=== PATIENT | female | born 1990 | race Caucasian/White ===

== ENCOUNTER 2017-10-27 17:20 | Observation (INO) | payer OTHER ==
[~2017-10-27] VITALS: Ht 160 cm; Wt 100.7 kg
== END 2017-10-27 20:00 | disposition home or self-care (01) ==
LOC: EDBD → SPU 17:20
PROVIDERS: ADMIT Obstetrics & Gynecology; ATTEND Obstetrics & Gynecology
DX: O36.8220 Fetal anemia and thrombocytopenia, second trimester, not applicable or unspecified (principal); Z3A.22 22 weeks gestation of pregnancy
CPT/HCPCS: 81002; G0378

== ENCOUNTER 2018-03-02 13:15 | Inpatient (IN) | payer OTHER ==
[~2018-03-02] VITALS: Ht 160 cm; Wt 115.7 kg
[2018-03-02 18:58] VITALS: BP_SYST 141
[2018-03-02] MEDS ORDERED: DINOPROSTONE 10 MG SUPP VG ONE (19:00)
[2018-03-02 19:25] LABS: BASOPHILS % (AUTO) 0.3 % (0.0-2.0); EOSINOPHILS # (AUTO) 0.1 K/uL (0.0-0.4); HEMATOCRIT 27.3 % (36-48); HEMOGLOBIN 9.3 g/dL (12.0-16.0); LYMPHOCYTES % (AUTO) 19.6 % (20.5-51.5); MEAN CORPUSCULAR HEMOGLOBIN 27 pg (27-31); MEAN CORPUSCULAR HGB CONC 34 % (32-36); MEAN CORPUSCULAR VOLUME 78 fL (79.0-98.0); MONOCYTES # (AUTO) 0.7 K/uL (0.0-1.0); MONOCYTES % (AUTO) 6.5 % (1.7-9.3); NEUTROPHILS # (AUTO) 7.2 K/uL (1.8-7.7); NEUTROPHILS % (AUTO) 72.6 % (40.0-70.0); PLATELET COUNT (AUTO) 184 K/uL (130-430); RED CELL DISTRIBUTION WIDTH 15.6 % (9.0-15.0)
[2018-03-02] MEDS: LR 1,000 ML IV SCH (19:59)
[2018-03-03] MEDS: OXYTOCIN/0.9 % SODIUM CHLORIDE 1,000 ML IV SCH (04:12)
[2018-03-03] MEDS: NALBUPHINE HCL 10 MG/ML AMP IVP PRN ×2 (04:13→14:50)
[2018-03-03] MEDS: LR 1,000 ML IV SCH (04:17)
[2018-03-03] MEDS ORDERED: LIDOCAINE PF 2%, 200 MG/10 ML AMPUL.LUER (EPIDURAL) INJ ONE (10:35)
[2018-03-03] MEDS ORDERED: NS IRRIG SOLN 1000 ML IR ONE (10:35)
[2018-03-03] MEDS ORDERED: LR 1,000 ML IV.SOLN IV ONE (10:35)
[2018-03-03] MEDS ORDERED: LIDOCAINE MPF 2% 5mL VIAL INJ ONE (10:35)
[2018-03-03] MEDS ORDERED: fentaNYL CITRATE/PF 100 MCG/2 ML AMP IVP ONE (10:35)
[2018-03-03] MEDS ORDERED: MORPHINE SULFATE 10MG/10ML PF AMP EP ONE (10:35)
[2018-03-03] MEDS ORDERED: fentaNYL CITRATE/PF 100 MCG/2 ML AMP ONE (15:58)
[2018-03-03] MEDS ORDERED: ROPIVACAINE 0.2% 100 ML ONE (15:58)
[2018-03-03] MEDS ORDERED: FENT2mCg/mL-ROPIVA0.2%/NS EPID 150 ML EP SCH (15:58)
[2018-03-03 18:23] LABS: BILIRUBIN,URINE NEGATIVE (NEGATIVE); CLARITY/URINE CLEAR (CLEAR); COLOR,URINE YELLOW (YELLOW); GLUCOSE,URINE NEGATIVE (NEGATIVE); KETONES,URINE 1+ (NEGATIVE); LEUKOCYTE ESTERASE ,URINE NEGATIVE (NEGATIVE); NITRITE, URINE NEGATIVE (NEGATIVE); PROTEIN URINE 2+ (NEGATIVE); UROBILINOGEN,URINE 0.2 (0.2-1.0)
[2018-03-03 18:35] LABS: BLOOD, URINE TRACE (NEGATIVE)
[2018-03-03 19:05] LABS: BACTERIA,URINE FEW /HPF (None Seen); RBC,URINE 0-3 /HPF (0-3); WBC,URINE 0-3 /HPF (0-3)
[2018-03-03 19:06] LABS: MUCUS,URINE None Seen /LPF (None Seen)
[2018-03-04] MEDS ORDERED: ROPIVACAINE 0.2% 100 ML ONE (00:19)
[2018-03-04] MEDS: LR 1,000 ML IV SCH (00:20)
[2018-03-04] MEDS: NALBUPHINE HCL 10 MG/ML AMP IVP PRN (01:12)
[2018-03-04] MEDS: OXYTOCIN/0.9 % SODIUM CHLORIDE 1,000 ML IV SCH (01:50)
[2018-03-04] MEDS ORDERED: fentaNYL CITRATE/PF 100 MCG/2 ML AMP ONE (02:51)
[2018-03-04] MEDS ORDERED: OXYTOCIN/0.9 % SODIUM CHLORIDE 1,000 ML IV ONE ×2 (09:06→20:53)
[2018-03-04] MEDS ORDERED: MORPHINE SULFATE 10 MG/ML VIAL IVP PRN (09:15)
[2018-03-04] MEDS ORDERED: ANUSOL 1 EA SUPP.RECT (PREPARATION H) RC PRN (09:15)
[2018-03-04] MEDS ORDERED: SIMETHICONE 80 MG TAB.CHEW PO PRN (09:15)
[2018-03-04] MEDS ORDERED: SENNOSIDES/DOCUSATE SODIUM 1 TAB TABLET(SENOKOT-S) PO PRN (09:15)
[2018-03-04] MEDS ORDERED: RHO(D) IMMUNE GLOBULIN/MALTOSE 1500 UNITS/1.3 ML (WINHRO) IM PRN (09:15)
[2018-03-04] MEDS ORDERED: DIPH-TET-PERTUS Vaccine 0.5 ML VIAL (ADACEL) I.M. PRN (09:15)
[2018-03-04] MEDS ORDERED: MEASLES,MUMPS&RUBELLA VACC/PF 12500 UNIT/0.5 ML VIAL SUBQ PRN (09:15)
[2018-03-04] MEDS ORDERED: BISACODYL 10 MG/SUPPOSITORY RC PRN (09:15)
[2018-03-04] MEDS ORDERED: LANOLIN 7 GM OINT. TP PRN (09:15)
[2018-03-04] MEDS ORDERED: CEFAZOLIN 2 GM IVPB PREMIX 50 ML IV ONE (09:26)
[2018-03-04] MEDS ORDERED: NALBUPHINE HCL 10 MG/ML AMP IVP PRN (10:15)
[2018-03-04] MEDS ORDERED: MORPHINE SULFATE 10MG/10ML PF AMP EP SCH (10:15)
[2018-03-04] MEDS ORDERED: KETOROLAC TROMETHAMINE 30 MG VIAL IVP PRN (10:15)
[2018-03-04] MEDS ORDERED: KETOROLAC TROMETHAMINE 60 MG/2 ML VIAL IM PRN (10:15)
[2018-03-04] MEDS ORDERED: ONDANSETRON HCL 4 MG/2 ML VIAL IVP PRN ×2 (10:15)
[2018-03-04] MEDS ORDERED: DIPHENHYDRAMINE INJ 50 MG/ML VIAL IVP PRN (10:15)
[2018-03-04] MEDS ORDERED: NALOXONE HCL 0.4 MG/ML AMP (NARCAN) IVP PRN ×2 (10:15)
[2018-03-04] MEDS ORDERED: fentaNYL CITRATE/PF 100 MCG/2 ML AMP IVP PRN ×2 (10:15)
[2018-03-04 10:30] VITALS: BP_SYST 128
--- NOTE | 2018-03-04 14:30 | NUR ---
Dietitian Recommendations * Recommend continuing clear liquid diet per MD * Consider advance to regular diet if/when medically appropriate (lactose restriction) LP, RD Please refer to Nutrition Assessment for details.
[2018-03-04] MEDS ORDERED: TEMAZEPAM 15 MG CAPSULE PO PRN (21:00)
[2018-03-05] MEDS: DOCUSATE SODIUM 100 MG CAPSULE PO PRN ×3 (06:00→21:51)
[2018-03-05] MEDS: IBUPROFEN 800 MG TABLET PO PRN ×3 (06:00→17:35)
[2018-03-05 06:17] LABS: HEMOGLOBIN 7.2 g/dL (12.0-16.0); MEAN CORPUSCULAR HEMOGLOBIN 26 pg (27-31); MEAN CORPUSCULAR HGB CONC 34 % (32-36); MEAN CORPUSCULAR VOLUME 78 fL (79.0-98.0); PLATELET COUNT (AUTO) 168 K/uL (130-430); RED BLOOD CELL COUNT(AUTO) 2.74 MIL/uL (4.2-6.2); RED CELL DISTRIBUTION WIDTH 15.8 % (9.0-15.0)
[2018-03-05 07:00] LABS: HEMATOCRIT 21.5 % (36-48)
[2018-03-05] MEDS ORDERED: MINERAL OIL 30 ML UDC PO ONE (07:29)
[2018-03-05] MEDS ORDERED: LIDOCAINE PF 1% 30ML(POUR BTL) INJ ONE (07:29)
[2018-03-05 09:47] LABS: BAND % (MANUAL) 10 % (0-6); BASOPHILS % (MANUAL) 0 % (0-2); EOSINOPHILS % (MANUAL) 1 % (0-7); LYMPHOCYTES % (MANUAL) 9 % (20-46); MONOCYTES % (MANUAL) 4 % (0-11)
[2018-03-05] MEDS: FERROUS SULFATE 325 MG TABLET.DR PO SCH ×3 (09:51→21:51)
[2018-03-05] MEDS: OXYCODONE/ACETAMINOPHEN 5-325 TABLET PO PRN ×2 (16:10→21:50)
[2018-03-06] MEDS: IBUPROFEN 800 MG TABLET PO PRN ×3 (00:18→08:07)
[2018-03-06] MEDS: OXYCODONE/ACETAMINOPHEN 5-325 TABLET PO PRN (03:38)
[2018-03-06] MEDS: FERROUS SULFATE 325 MG TABLET.DR PO SCH (09:20)
== END 2018-03-06 13:10 | disposition home or self-care (01) | DRG 765 ==
LOC: SPU 18:15
PROVIDERS: ADMIT Specialist; ATTEND Specialist
PROC: 3E0P7VZ Introduction of Hormone into Female Reproductive, Via Natural or Artificial Opening (ICD-10-PCS; 2018-03-04)
PROC: 3E033VJ Introduction of Other Hormone into Peripheral Vein, Percutaneous Approach (ICD-10-PCS; 2018-03-04)
PROC: 10D00Z1 Extraction of Products of Conception, Low, Open Approach (ICD-10-PCS; principal; 2018-03-04 09:00)
DX: O33.9 Maternal care for disproportion, unspecified (principal); Z68.42 Body mass index [BMI] 45.0-49.9, adult; O48.0 Post-term pregnancy; O99.02 Anemia complicating childbirth; D64.9 Anemia, unspecified; O62.1 Secondary uterine inertia; O99.214 Obesity complicating childbirth; E66.01 Morbid (severe) obesity due to excess calories; O64.0XX0 Obstructed labor due to incomplete rotation of fetal head, not applicable or unspecified; O69.2XX0 Labor and delivery complicated by other cord entanglement, with compression, not applicable or unspecified; Z37.0 Single live birth; Z3A.41 41 weeks gestation of pregnancy
CPT/HCPCS: 36415; 81000-TC; 85007; 85025; 85027; 86886; 86900; 86901; 94760; J0690; J1885; J2001; J2274; J2300; J2590; J2795; J3010; J7120

== ENCOUNTER 2019-11-30 23:57 | Emergency (ER) | payer OTHER ==
[~2019-11-30] VITALS: Ht 160 cm; Wt 94.3 kg
[2019-12-01] MEDS ORDERED: NACL 0.9% 1,000 ML IV ONE (00:01)
[2019-12-01 00:12] VITALS: BP_SYST 117
--- NOTE | 2019-12-01 00:16 | NUR ---
Patient triaged and placed in waiting room. VSS and patient appears in no acute distress at this time. Accompanied by , awaiting available bed, and MD notified of need for MSE.
[2019-12-01 00:55] LABS: BASOPHILS % (AUTO) 0.3 % (0.0-2.0); EOSINOPHILS # (AUTO) 0.2 K/uL (0.0-0.4); EOSINOPHILS % (AUTO) 1.7 % (0.0-4.0); HEMATOCRIT 36.1 % (36-48); HEMOGLOBIN 12.1 g/dL (12.0-16.0); LYMPHOCYTES # (AUTO) 3.4 K/uL (1.0-5.5); LYMPHOCYTES % (AUTO) 25.1 % (20.5-51.5); MEAN CORPUSCULAR HEMOGLOBIN 29 pg (27-31); MEAN CORPUSCULAR HGB CONC 34 % (32-36); MEAN CORPUSCULAR VOLUME 88 fL (79.0-98.0); MONOCYTES # (AUTO) 0.8 K/uL (0.0-1.0); MONOCYTES % (AUTO) 6.2 % (1.7-9.3); NEUTROPHILS # (AUTO) 9.1 K/uL (1.8-7.7); NEUTROPHILS % (AUTO) 66.7 % (40.0-70.0); PLATELET COUNT (AUTO) 241 K/uL (130-430); RED BLOOD CELL COUNT(AUTO) 4.13 MIL/uL (4.2-6.2); RED CELL DISTRIBUTION WIDTH 13.9 % (9.0-15.0); WHITE BLOOD COUNT (AUTO) 13.7 K/uL (4.8-10.8)
[2019-12-01 01:14] LABS: CALCIUM 8.5 mg/dL (8.4-11.0); CREATININE 0.54 mg/dL (0.55-1.30); POTASSIUM 3.8 mmol/L (3.5-5.1)
[2019-12-01 01:21] LABS: BILIRUBIN,URINE NEGATIVE (NEGATIVE); BLOOD, URINE NEGATIVE (NEGATIVE); CLARITY/URINE CLEAR (CLEAR); COLOR,URINE YELLOW (YELLOW); GLUCOSE,URINE NEGATIVE (NEGATIVE); KETONES,URINE NEGATIVE (NEGATIVE); LEUKOCYTE ESTERASE ,URINE 2+ (NEGATIVE); NITRITE, URINE NEGATIVE (NEGATIVE); PROTEIN URINE NEGATIVE (NEGATIVE); UROBILINOGEN,URINE 0.2 (0.2-1.0)
--- NOTE | 2019-12-01 01:32 | NUR ---
Patient to ER bed 06 to gown for evaluation. Side rails up. Report given to DWAYNE Khan.
[2019-12-01 01:33] LABS: BACTERIA,URINE MODERATE /HPF (None Seen); RBC,URINE 0-3 /HPF (0-3)
[2019-12-01 01:42] LABS: ALBUMIN 2.7 g/dL (3.4-4.8); TOTAL BILIRUBIN 0.2 mg/dL (0.0-1.0)
--- NOTE | 2019-12-01 01:42 | NUR ---
Pt 19 weeks , AAOx4 ambulated into ED c/o possible vagina bleeding s/p noticing bright pink blood in toilet last night. Also c/o 4/10 L flank pain. Denies dysuria. No other injuries/complaints per pt/noted. Will continue to monitor.
--- NOTE | 2019-12-01 01:45 | NUR ---
ER Dr. Decker at bedside examining patient.
--- NOTE | 2019-12-01 02:05 | NUR ---
Patient given written and verbal discharge instructions and verbalizes understanding. ER MD Decker discussed with patient the results and treatment provided. Patient in stable condition. ID arm band removed. Rx of Macrobid given. Patient educated on pain management and to follow up with PMD. Pain Scale 0. Opportunity for questions provided and answered. Medication side effect fact sheet provided.
[2019-12-01 02:10] VITALS: BP_SYST 112
== END 2019-12-01 02:05 | disposition home or self-care (01) ==
LOC: SED 23:57
DX: O20.9 Hemorrhage in early pregnancy, unspecified (principal); O23.42 Unspecified infection of urinary tract in pregnancy, second trimester; Z3A.19 19 weeks gestation of pregnancy; Z88.8 Allergy status to other drugs, medicaments and biological substances
CPT/HCPCS: 36415; 76805-TC; 80053; 81000-TC; 84702-TC; 85025; 86901; 87086; 99284